=== PATIENT | male | born 1995 | race American Indian/Alaskan Native ===

== ENCOUNTER 2018-08-28 16:37 | Emergency (ER) | payer OTHER ==
[2018-08-28 16:43] VITALS: BP 154/82; PULSE 96; RESP 18; TEMP 98.2; O2SAT 98
--- NOTE | 2018-08-28 18:11 | ED PDOC ---
Upper Extremity Pain/Injury Time Seen by Provider: 08/28/18 17:02 Chief Complaint (Nursing): Upper Extremity Problem/Injury Chief Complaint (Provider): Right Shoulder Pain History Per: Patient History/Exam Limitations: no limitations Onset/Duration Of Symptoms: Days (x1) Current Symptoms Are (Timing): Still Present Additional Complaint(s): 22 year old male presents to the ED for evaluation of right shoulder pain s/p falling off of a motorized skateboard yesterday. He states after the fall, he was evaluated at a hospital in [place] where he had negative Xrays, was placed in a sling and discharged. He has been managing his pain with Ibuprofen (last dose this morning), but states that if he does not move the arm, there is no pain. Upon follow up with his PMD, Dr. Mendez,today, he was informed it is most likely a subluxation given the obvious deformity and recommended he come into ED to fix it. Otherwise denies injuries, numbness, or tingling. Past Medical History Reviewed: Historical Data, Nursing Documentation, Vital Signs Vital Signs: Last Vital Signs Temp 98.2 F 08/28/18 16:42 Pulse 96 H 08/28/18 16:42 Resp 18 08/28/18 16:42 BP 154/82 H 08/28/18 16:42 Pulse Ox 98 08/28/18 16:42 Primary Care Provider: Brando Mendez - Medical History PMH: Depression - Surgical History Surgical History: No Surg Hx - Family History Family History: States: Unknown Family Hx - Social History Current smoker - smoking cessation education provided: No Alcohol: None Drugs: Denies - Immunization History Hx Tetanus Toxoid Vaccination: Yes Hx Influenza Vaccination: Yes Hx Pneumococcal Vaccination: Yes - Allergies Allergies/Adverse Reactions: Allergies Allergy/AdvReac Type Severity Reaction Status Date / Time No Known Allergies Allergy Verified 12/22/13 23:08 Review of Systems ROS Statement: Except As Marked, All Systems Reviewed And Found Negative Musculoskeletal: Positive for: Shoulder Pain (right) Neurological: Negative for: Numbness (or tingling) Physical Exam - Reviewed Nursing Documentation Reviewed: Yes Vital Signs Reviewed: Yes - Physical Exam Comments: GENERAL APPEARANCE: Patient is awake, alert, oriented x 3, in no acute distress. SKIN: Warm, dry; (-) cyanosis. CHEST AND RESPIRATORY: (-) chest wall tenderness. Lungs: (-) rales, (-) rhonchi, (-) wheezes; breath sounds equal bilaterally. HEART AND CARDIOVASCULAR: (-) irregularity; (-) murmur, (-) gallop. RIGHT UPPER EXTREMITY: capillary refill less than 2 seconds. pulses 2+. (+) ten derness to posterior shoulder with an obvious deformity, (+) decreased ROM secondary to shoulder pain, though still able to move and touch right hand to left shoulder, NVI, no abrasions or lacerations NEURO AND PSYCH: Mental status as above. Neurovascular intact. - ECG O2 Sat by Pulse Oximetry: 98 (RA) Pulse Ox Interpretation: Normal Medical Decision Making Medical Decision Making: Time: 1717 Initial Impression: possible subluxation of right shoulder Initial Plan: --Right shoulder XR 1939 XR read by me as no acute fracture or dislocation, but positive for ac widening. Reviewed XRs with Dr. Bryan as well who agrees with my read and states there is nothing to do at this time. Advised patient to continue using the sling, ice, elevate, and follow up with ortho. Discussed results, diagnosis, treatment, return precautions and f/u with pt who is understanding, in agreement and stable for dc Scribe Attestation: Documented by Luna Newton, acting as a scribe for Les Bhatti PA-C. Provider Scribe Attestation: All medical record entries made by the Scribe were at my direction and personally dictated by me. I have reviewed the chart and agree that the record accurately reflects my personal performance of the history, physical exam, medical decision making, and the department course for this patient. I have also personally directed, reviewed, and agree with the discharge instructions and disposition. Disposition - Clinical Impression Clinical Impression: Acromioclavicular joint separation - Patient ED Disposition Is Patient to be Admitted: No Counseled Patient/Family Regarding: Studies Performed, Diagnosis, Need For Followup - Disposition Referrals: Enrique Araiza MD [Staff Provider] - Disposition: Routine/Home Disposition Time: 19:40 Condition: STABLE Additional Instructions: Return to ED for new or worsening symptoms, fever >100.4, numbness or tingling, changes in skin color. Follow up with an orthopedist as soon as possible. Rest, ice and elevate. Wear sling daily. Take iBuprofen for pain. Instructions: Shoulder Forms: [facility] (Latvian), [facility] ED School/Work Excuse Print Language: SETS[place] - POA Present On Arrival: None
--- NOTE | 2018-08-29 10:53 | RAD ---
Date of service: 08/28/2018 PROCEDURE: Radiographs of the Right Shoulder HISTORY: injury, deformity COMPARISON: None TECHNIQUE: 3 views obtained. FINDINGS: BONES: Normal. No fracture. JOINTS: Dislocation of the acromioclavicular joint. SOFT TISSUES: Normal. OTHER FINDINGS: None. IMPRESSION: Type III right acromioclavicular dislocation. No associated fracture.
== END 2018-08-28 19:48 | disposition home or self-care (01) ==
LOC: H.ER 16:37
DX: S43.101A Unspecified dislocation of right acromioclavicular joint, initial encounter (principal); W19.XXXA Unspecified fall, initial encounter; Y92.89 Other specified places as the place of occurrence of the external cause